=== PATIENT | male | born 1950 | race Hispanic/Latino ===

== ENCOUNTER → 2017-06-02 | Day surgery (SDC) | payer OTHER ==
[~2017-06-02] MED LIST: ACETAMINOPHN-T1 EACH PO; FENTANYL CITRATE/PF 100MCG/2 ML INJ ONE; LIDOCAINE HCL 2% LOCAL INJ 5 ML SDV VIAL INJ ONE; LISINOPRIL-HCT1 EAC3 PO; MIDAZOLAM HCL 2 MG/2 ML VIAL ONE; PROPOFOL IV EMULSION 10 MG/ML 50 ML VIAL ONE; Z.0.LEVAQUIN500 MG PO
--- NOTE | 2017-06-02 12:16 | Operative Report ---
DATE OF PROCEDURE: June 02, 2017 REFERRING PHYSICIAN: Vick Stubbs MD PROCEDURE PERFORMED: Colonoscopy and polypectomy. INDICATIONS FOR COLONOSCOPY: Colorectal cancer screening. MEDICATION: Patient was done under MAC. Please see anesthesiologist's note. PROCEDURE: With the patient in the left lateral decubitus position, the flexible fiberoptic Olympus colonoscope was inserted into the rectum with ease and advanced all the way to the cecum. Diverticular disease was noted to be scattered pretty much throughout, more prominent in the left colon. Scope was then withdrawn slowly, and mucosa overlying the cecum appeared to be within normal limits. Five polyps were snared from the ascending colon. Three polyps were snared and 1 polyp was hot biopsied from the transverse colon. Two polyps were hot biopsied from the descending colon. One polyp was snared from sigmoid colon. Two polyps were hot biopsied from the rectum. The scope was then retroflexed into the distal rectum, and small internal hemorrhoids were noted, none of which was actively bleeding. The scope was then straightened out and was subsequently withdrawn. Patient tolerated the procedure well. IMPRESSION 1. Ascending colon polyps times 5, snared. 2. Transverse colon polyps times 4, one hot biopsied and 3 snared. 3. Descending colon polyps, hot biopsied times 2. 4. Diverticulosis. 5. Sigmoid colon polyp, snared. 6. Rectal polyps times 2, hot biopsied. 7. Internal hemorrhoids, none actively bleeding. PLAN: Follow up histology. Initiate high-fiber, low-fat diet. Initiate high-fiber supplement. Patient will need a followup colonoscopy in 1 to 2 years. Job#: [id number] cc:VICK STUBBS MD
== END | disposition home or self-care (01) ==
LOC: OR 08:06
PROVIDERS: ATTEND Internal Medicine Gastroenterology
DX: Z12.11 Encounter for screening for malignant neoplasm of colon (principal); D12.2 Benign neoplasm of ascending colon; D12.3 Benign neoplasm of transverse colon; D12.4 Benign neoplasm of descending colon; D12.5 Benign neoplasm of sigmoid colon; K62.1 Rectal polyp; K57.30 Diverticulosis of large intestine without perforation or abscess without bleeding; K64.8 Other hemorrhoids; I10 Essential (primary) hypertension; Z01.810 Encounter for preprocedural cardiovascular examination
CPT/HCPCS: 45384; 45385; 93005; J2001; J2250

== ENCOUNTER → 2017-12-05 | Outpatient (CLI) | payer MEDICARE ==
[~2017-12-05] MED LIST changes: -FENTANYL CITRATE/PF 100MCG/2 ML INJ ONE; -LIDOCAINE HCL 2% LOCAL INJ 5 ML SDV VIAL INJ ONE; -MIDAZOLAM HCL 2 MG/2 ML VIAL ONE; -PROPOFOL IV EMULSION 10 MG/ML 50 ML VIAL ONE
--- NOTE | 2017-12-05 16:01 | Diagnostic Imaging Report ---
PROCEDURE: Frontal and lateral views of the chest. COMPARISON: Patients [facility], , CHEST SINGLE (PORTABLE), 08/17/2013, 7:46. INDICATIONS: COUGH/WHEEZING FOR 6 WEEKS FINDINGS: Lines/tubes: None. Lungs: Minimal bibasilar subsegmental atelectasis. There is no evidence of pneumonia or pulmonary edema. Pleura: There is no pleural effusion or pneumothorax. Heart and mediastinum: The heart and the mediastinum are normal. Tortuous thoracic aorta. Bones: No acute bony abnormality. IMPRESSION: 1. No acute cardiopulmonary disease. Raimundo Williamson M.D. Dictated by: Raimundo Williamson M.D. on 12/05/2017 at 16:04 Electronically approved by: Raimundo Williamson M.D. on 12/05/2017 at 16:04
== END | disposition home or self-care (01) ==
LOC: RAD 15:14
DX: J45.909 Unspecified asthma, uncomplicated (principal)
CPT/HCPCS: 71046

== ENCOUNTER 2018-05-25 17:23 | Emergency (ER) | payer MEDICARE ==
[~2018-05-25] VITALS: Ht 167.6 cm; Wt 124.7 kg
--- OUTSIDE RECORDS SUMMARY | 2018-05-25 17:25 | XMS REPORT ---
[facility] Address Unknown Phone Unavailable Care Team Providers Care Director Of Accounting Name Role Phone CARSON STUBBS Unavailable Unavailable Problems This patient has no known problems. Allergies, Adverse Reactions, Alerts This patient has no known allergies or adverse reactions. Medications This patient has no known medications. Results Test Description Test Time Test Comments Text Results Atomic Results Result Comments CHEST 2 VIEWS 2017-12-05 16:04:00 [place] [address] Patient Name: EVELYN STANLEY V MR #: [id number] : 1950 Age/Sex: 67/M Req #: [id number] Adm Physician: Ordered by: CARSON STUBBS MD Report #: [id number] Location: RAD Room/Bed: Procedure: [id number] DX/CHEST 2 VIEWS Exam Date: Exam Time: REPORT STATUS: Signed PROCEDURE: Frontal and lateral views of the chest. COMPARISON: [facility], DX, CHEST SINGLE (PORTABLE), 08/17/2013, 7:46. INDICATIONS: COUGH/WHEEZING FOR 6 WEEKS FINDINGS: Lines/tubes: None. Lungs: Minimal bibasilar subsegmental atelectasis. There is no evidence of pneumonia or pulmonary edema. Pleura: There is no pleural effusion or pneumothorax. Heart and mediastinum: The heart and the mediastinum are normal. Tortuous thoracic aorta. Bones: No acute bony abnormality. IMPRESSION: 1. No acute cardiopulmonary disease. Raimundo Williamson M.D. Dictated by: Raimundo Williamson M.D. on 12/05/2017 at 16:04 Electronically approved by: Raimundo Williamson M.D. on 12/05/2017 at 16:04 Dictated By: MÓNICA WILLIAMSON MD, MD [id number] Transcribed By: BEATRIS on 12/05/17 1604 COPY TO: CARSON STUBBS MD
[2018-05-25] MEDS ORDERED: ONDANSETRON HCL INJ 2 MG/ML VIAL IV STA ×2 (17:41→19:07)
[2018-05-25] MEDS ORDERED: SODIUM CHLORIDE 0.9% 1000ML 1,000 ML IV STA (17:41)
[2018-05-25] MEDS ORDERED: MORPHINE SULFATE INJ 4 MG/ML INJ IV STA (17:41)
[2018-05-25] MEDS ORDERED: DIATRIZOATE MEGL/DIATRIZOA SOD 30 ML BTL PO ONE (18:24)
[2018-05-25] MEDS ORDERED: LISINOPRIL10 MG PO (18:27)
[2018-05-25 18:36] LABS: BASOPHILS % 0.4 % (0.0-1.0); EOSINOPHILS # (AUTO) 0.1 (0.0-0.4); EOSINOPHILS % 1.5 % (0.0-6.0); HEMATOCRIT 41.7 % (38.2-49.6); HEMOGLOBIN 13.8 g/dL (14.0-18.0); LYMPHOCYTES # (AUTO) 1.3 (1.0-3.2); LYMPHOCYTES % 14.8 % (18.0-39.1); MEAN CORPUSCULAR HEMOGLOBIN 29.7 pg (28-32); MEAN CORPUSCULAR HGB CONC 33.1 g/dL (31-35); MEAN CORPUSCULAR VOLUME 89.9 fL (81-99); MONOCYTES # (AUTO) 0.9 (0.2-0.8); NEUTROPHILS # (AUTO) 6.6 (2.1-6.9); NEUTROPHILS % 73.1 % (38.7-80.0); PLATELET COUNT 153 x10e3/uL (140-360); RED BLOOD COUNT 4.64 x10e6/uL (4.3-5.7); RED CELL DISTRIBUTION WIDTH 13.6 % (11.7-14.4)
[2018-05-25 18:51] LABS: CLARITY,URINE CLEAR (CLEAR); COLOR,URINE YELLOW (YELLOW); KETONES,URINE NEGATIVE (NEGATIVE); LEUKOCYTE ESTERASE ,URINE NEGATIVE (NEGATIVE); NITRITE,URINE NEGATIVE (NEGATIVE); PROTEIN,URINE DIPSTICK NEGATIVE (NEGATIVE)
[2018-05-25 18:52] LABS: BILIRUBIN,URINE NEGATIVE (NEGATIVE); URINE UROBILINOGEN 1 mg/dL (0.2 - 1)
[2018-05-25 18:54] LABS: ALANINE AMINOTRANSFERASE 19 IU/L (0-55); ALBUMIN 3.4 g/dL (3.5-5.0); ALBUMIN/GLOBULIN RATIO 0.9 (0.8-2.0); ALKALINE PHOSPHATASE 59 IU/L (40-150); BLOOD UREA NITROGEN 18 mg/dL (7-26); BUN/CREATININE RATIO 20 (6-25); CALCIUM 9.1 mg/dL (8.4-10.2); CARBON DIOXIDE 24 mmol/L (22-29); CHLORIDE 106 mmol/L (98-107); CREATININE, SERUM 0.89 mg/dL (0.72-1.25); EST GLOMERULAR FILTRATION RATE > 60 ML/MIN (60-); GLUCOSE 95 mg/dL (74-118); LIPASE 26 U/L (8-78); SODIUM 139 mmol/L (136-145)
[2018-05-25 19:11] LABS: BACTERIA,URINE FEW /HPF; EPITHELIAL CELLS,URINE FEW /LPF; RBC,URINE 0-5 /HPF (0-5); WBC,URINE (MAN) 0-5 /HPF (0-5)
[2018-05-25] MEDS ORDERED: IOPAMIDOL 370 MG/ML 200 ML INFUS..BTL INJ ONE (19:55)
[2018-05-25] MEDS ORDERED: SODIUM CHLORIDE 0.9% 50ML 50 ML ONE (19:55)
--- NOTE | 2018-05-25 20:21 | Diagnostic Imaging Report ---
EXAM: CT Abdomen and Pelvis WITH contrast INDICATION: Pain. Diverticulitis. COMPARISON: None. TECHNIQUE: Abdomen and pelvis were scanned utilizing a multidetector helical scanner from the lung base to the pubic symphysis after administration of IV contrast. Coronal and sagittal reformations were obtained. Routine protocol was performed. Scan was performed when during portal venous phase. IV CONTRAST: 100 cc Isovue-370 ORAL CONTRAST: Gastrografin and water mixture. RADIATION DOSE: Total DLP: 1322.43 mGy*cm Estimated effective dose: (DLP x 0.015 x size factor) mSv COMPLICATIONS: None FINDINGS: LINES and TUBES: None. LOWER THORAX: Bibasilar dependent atelectasis. HEPATOBILIARY: Diffuse hepatic steatosis. No focal hepatic lesions. No biliary ductal dilation. GALLBLADDER: Surgically absent. SPLEEN: No splenomegaly. PANCREAS: No focal masses or ductal dilatation. ADRENALS: No adrenal nodules KIDNEYS/URETERS: Kidneys enhance symmetrically. No hydronephrosis. 2.6 cm cyst in the upper pole of the left kidney. No stones. Subcentimeter cyst in the upper pole of the right kidney. GI TRACT: Colonic diverticulosis involving descending sigmoid colon. Approximately 6 cm long segment of proximal sigmoid colon with asymmetrically thickened wall, associated with surrounding fat stranding consistent with acute diverticulitis. No bowel obstruction. Appendix is normal. PELVIC ORGANS/BLADDER: Unremarkable. LYMPH NODES: No lymphadenopathy. VESSELS: There is mild atherosclerotic disease in the aorta and major arterial branches. PERITONEUM / RETROPERITONEUM: No free air or fluid. BONES: Degenerative disc disease particularly at L3-L4 with posterior endplate osteophytes. SOFT TISSUES: Small fat-containing umbilical hernia. IMPRESSION: 1. Acute sigmoid diverticulitis. No abscess formation. Recommend follow-up after treatment to document complete resolution. 2. Small fat-containing umbilical hernia. Signed by: Dr. Raimundo Williamson M.D. on 05/25/2018 8:18 PM
[2018-05-25 20:38] VITALS: BP 135/87
[2018-05-25] MEDS ORDERED: ZOFRAN4 MG PO (20:42)
[2018-05-25] MEDS ORDERED: FLAGYL250 MG PO (20:42)
[2018-05-25] MEDS ORDERED: ULTRAM 50MG50 MG PO (20:42)
[2018-05-25] MEDS ORDERED: CIPRO500 MG PO (20:42)
== END 2018-05-25 21:03 | disposition home or self-care (01) ==
LOC: ER 17:23
DX: R10.32 Left lower quadrant pain (principal); R11.0 Nausea; K57.12 Diverticulitis of small intestine without perforation or abscess without bleeding
CPT/HCPCS: 36415; 74177; 80053; 81001; 83690; 85025; 87086; 99284; J2270; J2405; J7030; Q9663; Q9967

== ENCOUNTER 2019-01-30 07:39 | Emergency (ER) | payer MEDICARE ==
[~2019-01-30] VITALS: Ht 167.6 cm; Wt 124.7 kg
[~2019-01-30 07:39] MED LIST changes: +CIPRO500 MG PO; +FLAGYL250 MG PO; +LISINOPRIL10 MG PO; +ULTRAM 50MG50 MG PO; +ZOFRAN4 MG PO
[2019-01-30] MEDS ORDERED: SODIUM CHLORIDE 0.9% 1000ML 1,000 ML IV SCH (08:15)
[2019-01-30 08:29] LABS: BILIRUBIN,URINE NEGATIVE (NEGATIVE); CLARITY,URINE SL CLOUDY (CLEAR); COLOR,URINE YELLOW (YELLOW); KETONES,URINE 1+ (NEGATIVE); LEUKOCYTE ESTERASE ,URINE SMALL (NEGATIVE); NITRITE,URINE NEGATIVE (NEGATIVE); PROTEIN,URINE DIPSTICK TRACE (NEGATIVE); URINE UROBILINOGEN 4 mg/dL (0.2 - 1)
[2019-01-30 08:54] LABS: BACTERIA,URINE MODERATE /HPF; EPITHELIAL CELLS,URINE MODERATE /LPF; WBC,URINE (MAN) 21-50 /HPF (0-5)
[2019-01-30 09:13] LABS: BASOPHILS % 0.1 % (0.0-1.0); EOSINOPHILS # (AUTO) 0.1 (0.0-0.4); HEMATOCRIT 44.8 % (38.2-49.6); HEMOGLOBIN 14.8 g/dL (14.0-18.0); LYMPHOCYTES # (AUTO) 0.6 (1.0-3.2); LYMPHOCYTES % 4.3 % (18.0-39.1); MEAN CORPUSCULAR HEMOGLOBIN 30.1 pg (28-32); MEAN CORPUSCULAR VOLUME 91.1 fL (81-99); NEUTROPHILS # (AUTO) 12.2 (2.1-6.9); NEUTROPHILS % 87.2 % (38.7-80.0); PLATELET COUNT 156 x10e3/uL (140-360); RED BLOOD COUNT 4.92 x10e6/uL (4.3-5.7); RED CELL DISTRIBUTION WIDTH 13.7 % (11.7-14.4)
[2019-01-30] MEDS ORDERED: KETOROLAC TROMETHAMINE 60 MG/2 ML VIAL IM ONE (09:30)
--- NOTE | 2019-01-30 09:32 | Diagnostic Imaging Report ---
EXAM: CT Abdomen and Pelvis WITHOUT intravenous contrast INDICATION: Flank pain COMPARISON: CT abdomen pelvis of 05/25/2018 TECHNIQUE: Abdomen and pelvis were scanned utilizing a multidetector helical scanner from the lung base to the pubic symphysis without administration of IV contrast. Coronal and sagittal reformations were obtained. IV CONTRAST: None ORAL CONTRAST: None COMPLICATIONS: None RADIATION DOSE: Total DLP: 1342.7 mGy*cm Dose modulation, iterative reconstruction, and/or weight based adjustment of the mA/kV was utilized to reduce the radiation dose to as low as reasonably achievable. FINDINGS: LOWER THORAX: Mild dependent subsegmental atelectasis. Coronary artery atherosclerotic calcifications. HEPATOBILIARY: Diffuse hepatic steatosis. No definite focal liver lesion. Status post cholecystectomy. SPLEEN: No splenomegaly. PANCREAS: No focal masses or ductal dilatation. ADRENALS: No adrenal nodules. KIDNEYS/URETERS: No hydronephrosis. 2 mm nonobstructive left lower pole renal calculus. Subcentimeter exophytic right upper pole hypodensity is incompletely evaluated, possibly a cyst. Left upper pole renal cyst measures up to 3.3 cm. PELVIC ORGANS/BLADDER: Prostatomegaly to 5.3 cm. Decompressed bladder. PERITONEUM / RETROPERITONEUM: No free air or fluid. LYMPH NODES: No lymphadenopathy. VESSELS: Scattered atherosclerotic calcifications of the nonaneurysmal abdominal aorta and major branches. GI TRACT: Extensive sigmoid and descending colon diverticulosis. No CT evidence of diverticulitis. No abnormal bowel wall thickening. No bowel obstruction. Normal appendix. BONES AND SOFT TISSUES: No acute osseous injury. No suspicious lytic or blastic lesions. Degenerative changes of the lumbar spine centered at L3-4 where there is grade 1 retrolisthesis.. IMPRESSION: No hydronephrosis. 2 mm nonobstructive left lower pole renal calculus. Prostatomegaly. Diffuse hepatic steatosis. Extensive colonic diverticulosis with no CT evidence of diverticulitis. Atherosclerotic calcifications including of the coronary arteries. Signed by: Tito Gotti MD on 01/30/2019 9:28 AM
[2019-01-30] MEDS ORDERED: KETOROLAC TROMETHAMINE 30 MG/ML VIAL IV STA (09:34)
[2019-01-30] MEDS ORDERED: KETOROLAC TROMETHAMINE 30 MG/ML VIAL ONE (09:35)
[2019-01-30 09:37] LABS: ANION GAP 13.4 mmol/L (8-16); BLOOD UREA NITROGEN 10 mg/dL (7-26); BUN/CREATININE RATIO 12 (6-25); CALCIUM 9.7 mg/dL (8.4-10.2); CARBON DIOXIDE 27 mmol/L (22-29); CHLORIDE 100 mmol/L (98-107); CREATININE, SERUM 0.81 mg/dL (0.72-1.25); EST GLOMERULAR FILTRATION RATE > 60 ML/MIN (60-); GLUCOSE 133 mg/dL (74-118); POTASSIUM 4.4 mmol/L (3.5-5.1); SODIUM 136 mmol/L (136-145)
[2019-01-30] MEDS ORDERED: ZOFRAN4 MG PO (10:01)
[2019-01-30] MEDS ORDERED: MOTRIN200 MG PO (10:01)
[2019-01-30] MEDS ORDERED: FLOMAX0.4 MG PO (10:01)
[2019-01-30] MEDS ORDERED: CIPRO500 MG PO (10:03)
[2019-01-30 10:10] VITALS: BP 140/94
== END 2019-01-30 10:12 | disposition home or self-care (01) ==
LOC: ER 07:39
DX: R30.0 Dysuria (principal); N30.90 Cystitis, unspecified without hematuria; N40.0 Benign prostatic hyperplasia without lower urinary tract symptoms
CPT/HCPCS: 36415; 74176; 80048; 81001; 85025; 99284; J1885; J7030

== ENCOUNTER → 2025-03-27 | Day surgery (SDC) | payer MEDICARE ==
[2025-03-25 09:32] LABS: BASOPHILS % 1.1 % (0.0-1.0); EOSINOPHILS % 3.1 % (0.0-6.0); LYMPHOCYTES % 30.0 % (18.0-39.1); MONOCYTES % 11.7 % (4.4-11.3); NEUTROPHILS % 53.9 % (38.7-80.0); RED CELL DISTRIBUTION WIDTH 13.9 % (11.7-14.4)
[~2025-03-27] MED LIST changes: +ASPIRIN81 MG PO; +ATORVASTATIN CA10 MG PO; +B-121000 MC2; +D3-5000125 MCG; +FINASTERIDE5 MG PO; +FLOMAX0.4 MG PO; +FOLIC ACID0.4 MG PO; +FUROSEMIDE40 MG PO; +LIDOCAINE HCL 2% LOCAL INJ 5 ML SDV VIAL INJ ONE; +LISINOPRIL40 MG; +METOPROLOL SUCC25 MG PO; +MOTRIN200 MG PO; +NORVASC2.5 MG PO; +POTASSIUM99 M1; +PROPOFOL IV EMULSION 10 MG/ML 20 ML VIAL ONE; +VITAMIN C1000 MG PO
[2025-03-27] MEDS: LACTATED RINGER'S 1,000 ML ONE (10:57)
[2025-03-27 14:10] VITALS: BP 132/90; PULSE 58; RESP 16; O2SAT 97
== END | disposition home or self-care (01) ==
LOC: OR 09:55
PROVIDERS: ATTEND Internal Medicine Gastroenterology
DX: Z09 Encounter for follow-up examination after completed treatment for conditions other than malignant neoplasm (principal); D12.0 Benign neoplasm of cecum; D12.2 Benign neoplasm of ascending colon; D12.3 Benign neoplasm of transverse colon; D12.4 Benign neoplasm of descending colon; D12.5 Benign neoplasm of sigmoid colon; K57.30 Diverticulosis of large intestine without perforation or abscess without bleeding; K64.8 Other hemorrhoids; I25.810 Atherosclerosis of coronary artery bypass graft(s) without angina pectoris; I10 Essential (primary) hypertension; E78.5 Hyperlipidemia, unspecified; I45.10 Unspecified right bundle-branch block; N40.0 Benign prostatic hyperplasia without lower urinary tract symptoms; Z01.810 Encounter for preprocedural cardiovascular examination; Z01.812 Encounter for preprocedural laboratory examination; Z79.02 Long term (current) use of antithrombotics/antiplatelets; Z79.82 Long term (current) use of aspirin; Z79.899 Other long term (current) drug therapy; Z68.42 Body mass index [BMI] 45.0-49.9, adult; Z71.3 Dietary counseling and surveillance; Z95.1 Presence of aortocoronary bypass graft; Z91.81 History of falling
CPT/HCPCS: 36415; 45385; 85025; 93005; J2003; J2704; J7121; 45378